=== PATIENT | female | born 1960 | race Caucasian/White ===

== ENCOUNTER 2017-08-28 09:59 | Emergency (ER) | payer OTHER ==
[~2017-08-28] VITALS: Ht 165.1 cm; Wt 81.5 kg
[~2017-08-28 09:59] MED LIST: HYDR-3307 PO; LISI-167 PO; ONDA8TAB12 PO; SULF1TAB24 PO; TOFA5TAB PO
[2017-08-28 10:16] VITALS: BP 161/97
== END 2017-08-28 11:44 | disposition home or self-care (01) ==
LOC: ED 11:31
DX: K12.0 Recurrent oral aphthae (principal); J01.90 Acute sinusitis, unspecified; I10 Essential (primary) hypertension; M06.9 Rheumatoid arthritis, unspecified
CPT/HCPCS: 99283

== ENCOUNTER 2017-10-27 14:31 | Emergency (ER) | payer OTHER ==
[~2017-10-27] VITALS: Ht 165.1 cm; Wt 79.0 kg
[2017-10-27 14:38] VITALS: BP 164/98
[2017-10-27] MEDS ORDERED: CYCL-259 PO (15:43)
[2017-10-27] MEDS ORDERED: LOSA25TA5 PO (15:43)
[2017-10-27] MEDS ORDERED: NAPR500T4 PO (15:43)
== END 2017-10-27 16:03 | disposition home or self-care (01) ==
LOC: ED 15:54
DX: S59.901A Unspecified injury of right elbow, initial encounter (principal); M06.9 Rheumatoid arthritis, unspecified; I10 Essential (primary) hypertension; E87.6 Hypokalemia; X58.XXXA Exposure to other specified factors, initial encounter; Y93.89 Activity, other specified; Y92.89 Other specified places as the place of occurrence of the external cause; Y99.8 Other external cause status
CPT/HCPCS: 99283

== ENCOUNTER 2018-03-24 22:47 | Emergency (ER) | payer OTHER ==
[~2018-03-24] VITALS: Ht 165.1 cm; Wt 80.0 kg
[~2018-03-24 22:47] MED LIST changes: +CYCL-259 PO; +LOSA25TA5 PO; +NAPR-685 PO
[2018-03-25] MEDS ORDERED: SODIUM CHLORIDE FLUSH 10ML SYR IVF ONE
[2018-03-25] MEDS ORDERED: ASPIRIN 81 MG TABLET CHEW PO ONE
[2018-03-25] MEDS ORDERED: ASPIRIN 81 MG TABLET CHEW ONE (00:02)
[2018-03-25] MEDS ORDERED: ONDANSETRON ODT 4 MG ONE (00:02)
[2018-03-25] MEDS ORDERED: FAMOTIDINE 20 MG/2 ML ONE (00:03)
[2018-03-25 00:18] LABS: ALANINE AMINOTRANSFERASE 27 U/L (12-78); ALBUMIN 3.3 g/dL (3.4-5.0); ANION GAP 5 mmol/L (5-15); CALCIUM 8.6 mg/dL (8.5-10.1); CHLORIDE 104 mmol/L (98-107)
[2018-03-25 00:23] LABS: ALKALINE PHOSPHATASE 125 U/L (45-117); BILIRUBIN,TOTAL 0.2 mg/dL (0.2-1.0); CREATININE 0.85 mg/dL (0.55-1.02); TOTAL PROTEIN 7.9 g/dL (6.4-8.2); TROPONIN I < 0.015 ng/mL (0.000-0.045)
[2018-03-25] MEDS ORDERED: PROCHLORPERAZINE 5 MG/ML, 2ML ONE (00:25)
[2018-03-25] MEDS ORDERED: MORPHINE SULFATE 4 MG/ML, 1ML ONE (00:25)
[2018-03-25 00:28] LABS: BASOPHILS % (AUTO) 0 % (0-1); EOSINOPHILS # (AUTO) 0.06 x10^3/uL (0-0.4); EOSINOPHILS % (AUTO) 1 % (1-7); LYMPHOCYTES # (AUTO) 0.25 x10^3/uL (1-3.4); LYMPHOCYTES % (AUTO) 4 % (22-44); MD NO; MEAN CORPUSCULAR HEMOGLOBIN 28.4 pg (27.0-34.8); MEAN CORPUSCULAR HGB CONC 33.1 g/dL (32.4-35.8); MEAN CORPUSCULAR VOLUME 85.8 fL (80-100); MEAN PLATELET VOLUME 8.2 fL (7.4-10.4); MONOCYTES # (AUTO) 0.31 x10^3/uL (0.2-0.8); MONOCYTES % (AUTO) 5 % (2-9); NEUTROPHILS # (AUTO) 5.25 x10^3/uL (1.8-6.8); NEUTROPHILS % (AUTO) 89 % (42-75); PLATELET COUNT 295 x10^3/uL (130-400); RED BLOOD COUNT 4.62 x10^6/uL (3.82-5.3); RED CELL DISTRIBUTION WIDTH 15.1 % (9.6-15.2)
[2018-03-25] MEDS ORDERED: ONDANSETRON ODT 4 MG PO ONE (00:30)
[2018-03-25] MEDS ORDERED: MORPHINE SULFATE 4 MG/ML, 1ML IVPush ONE (00:30)
[2018-03-25] MEDS ORDERED: FAMOTIDINE 20 MG/2 ML IVPush ONE (00:30)
[2018-03-25] MEDS ORDERED: PROCHLORPERAZINE 5 MG/ML, 2ML IVPush ONE (00:30)
[2018-03-25 00:34] LABS: INTERNATIONAL NORMALIZED RATIO 1.02 (0.93-1.1); PROTHROMBIN TIME 10.6 Seconds (9.6-11.5)
[2018-03-25 00:39] VITALS: BP 143/77
== END 2018-03-25 01:54 | disposition home or self-care (01) ==
LOC: ED 23:59
DX: R60.0 Localized edema (principal); K21.9 Gastro-esophageal reflux disease without esophagitis; I10 Essential (primary) hypertension; M06.9 Rheumatoid arthritis, unspecified; M35.00 Sjogren syndrome, unspecified; Z87.891 Personal history of nicotine dependence
CPT/HCPCS: 36415; 71045; 80053; 83690; 83880; 84484; 85025; 85610; 85730; 93005; 96374; 96375; 99285; J0780; Q0162; S0028

== ENCOUNTER → 2018-10-08 | Outpatient (CLI) | payer OTHER ==
[~2018-10-08] MED LIST changes: -LOSA25TA5 PO; +LOSA25TA6 PO
== END | disposition home or self-care (01) ==
LOC: RAD 13:49
PROVIDERS: ATTEND Family Medicine
DX: M79.604 Pain in right leg (principal); M79.605 Pain in left leg
CPT/HCPCS: 93970

== ENCOUNTER 2019-03-06 16:33 | Emergency (ER) | payer OTHER ==
[~2019-03-06] VITALS: Ht 165.1 cm; Wt 84.3 kg
[~2019-03-06 16:33] MED LIST changes: +LOSA25TA25 PO; -LOSA25TA6 PO
[2019-03-06 16:35] VITALS: BP 140/95
--- NOTE | 2019-03-06 18:15 | NUR ---
CALL TO [facility] REQUESTING NIRMALA AVILA TO BE SENT TO [facility]
== END 2019-03-06 18:46 | disposition home or self-care (01) ==
LOC: ED 17:30
DX: M79.672 Pain in left foot (principal); K21.9 Gastro-esophageal reflux disease without esophagitis; I10 Essential (primary) hypertension; M06.9 Rheumatoid arthritis, unspecified
CPT/HCPCS: 99283

== ENCOUNTER → 2020-03-10 | Outpatient (CLI) | payer OTHER ==
[~2020-03-10] MED LIST changes: -HYDR-3307 PO; +HYDR-36 PO
== END | disposition home or self-care (01) ==
LOC: LAB 15:23
PROVIDERS: ATTEND Physician Assistant Medical
DX: M79.89 Other specified soft tissue disorders (principal)